=== PATIENT | male | born 1980 | race Caucasian/White ===

== ENCOUNTER 2020-09-30 11:22 | Emergency (ER) | payer SELFPAY ==
[~2020-09-30] VITALS: Ht 177.8 cm; Wt 91.6 kg
--- NOTE | 2020-09-30 11:22 | NUR ---
[facility] TAKEN TO [facility] A
[2020-09-30 11:23] VITALS: BP 151/75
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
[2020-09-30 11:45] VITALS: BP 151/75
--- NOTE | 2020-09-30 11:45 | NUR ---
PATIENT MEDICALLY CLEARED AND RELEASED IN CUSTODY IN STABLE CONDITION. ORIGINAL PRE-BOOK FORM GIVEN TO OFFICER BLAISE. DISCHARGE INSTRUCTIONS GIVEN TO OFFICER. PT SIGNED DISCHARGED AND VERBALIZED UNDERSTANDING. PT OKAY TO BOOK PER DR. IBRAHIM.
== END 2020-09-30 11:45 ==
LOC: MED 11:22
DX: F10.129 Alcohol abuse with intoxication, unspecified (principal); Z02.89 Encounter for other administrative examinations; V98.8XXA Other specified transport accidents, initial encounter; Y93.89 Activity, other specified; Y92.89 Other specified places as the place of occurrence of the external cause; Y99.8 Other external cause status; Y90.9 Presence of alcohol in blood, level not specified
CPT/HCPCS: 99283